=== PATIENT | female | born 1960 | race Two or more races ===

== ENCOUNTER 2018-09-10 00:21 | Emergency (ER) | payer OTHER ==
[~2018-09-10] VITALS: Ht 175.3 cm; Wt 111.6 kg
[2018-09-10 00:26] VITALS: Ht 175.3 cm; Wt 111.6 kg
[2018-09-10 02:20] VITALS: BP 100/50
== END 2018-09-10 02:20 | disposition home or self-care (01) ==
LOC: ED 00:21
DX: J40 Bronchitis, not specified as acute or chronic (principal); I10 Essential (primary) hypertension
CPT/HCPCS: 87804